=== PATIENT | female | born 1985 | race Caucasian/White ===

== ENCOUNTER 2018-07-10 11:00 | Observation (INO) | payer OTHER ==
[~2018-07-10] VITALS: Ht 157.5 cm; Wt 63.5 kg
[~2018-07-10 11:00] MED LIST: SYN.075 PO
[2018-07-10] MEDS ORDERED: VITD1000 PO (12:56)
[2018-07-10] MEDS ORDERED: VITA1TAB44 PO (12:56)
[2018-07-10] MEDS ORDERED: LEVO0.124 PO (12:56)
[2018-07-10] MEDS ORDERED: PREN-546 PO (12:56)
[2018-07-10] MEDS ORDERED: FERR-252 PO (12:56)
== END 2018-07-10 14:15 | disposition home or self-care (01) ==
LOC: MLD 11:00
PROVIDERS: ADMIT Obstetrics & Gynecology; ATTEND Obstetrics & Gynecology
DX: O36.8130 Decreased fetal movements, third trimester, not applicable or unspecified (principal); Z3A.38 38 weeks gestation of pregnancy
CPT/HCPCS: 59025; 76805; 81000; G0378; Q0092

== ENCOUNTER 2018-07-13 17:47 | Inpatient (IN) | payer OTHER ==
[~2018-07-13] VITALS: Ht 157.5 cm; Wt 63.5 kg
[~2018-07-13 17:47] MED LIST changes: +FERR-252 PO; +LEVO0.124 PO; +PREN-546 PO; -SYN.075 PO; +VITA1TAB44 PO; +VITD1000 PO
[2018-07-13] MEDS ORDERED: OXYTOCIN 10 UNITS/ML VIAL IM SCH (18:50)
[2018-07-13] MEDS ORDERED: CARBOPROST 250 MCG/ML AMP IM PRN (18:50)
[2018-07-13] MEDS ORDERED: NALBUPHINE 10 MG/ML AMP IVP PRN (18:50)
[2018-07-13] MEDS ORDERED: METHYLERGONOVINE 0.2 MG/ML AMP IM PRN (18:50)
[2018-07-13 19:48] LABS: BASOPHILS % (AUTO) 0.2 % (0.0-2.0); EOSINOPHILS # (AUTO) 0.1 K/uL (0-0.4); EOSINOPHILS % (AUTO) 0.9 % (0.0-4.0); HEMATOCRIT 30.8 % (36-48); HEMOGLOBIN 10.9 g/dL (12.0-16.0); LYMPHOCYTES # (AUTO) 1.8 K/uL (2.5-16.5); LYMPHOCYTES % (AUTO) 20.5 % (20.5-51.1); MEAN CORPUSCULAR HEMOGLOBIN 36 pg (27-31); MEAN CORPUSCULAR HGB CONC 35 g/dL (33-37); MEAN CORPUSCULAR VOLUME 102.6 fL (80-94); MONOCYTES # (AUTO) 0.7 K/uL (0.8-1.0); MONOCYTES % (AUTO) 8.3 % (1.7-9.3); NEUTROPHILS # (AUTO) 6.2 K/uL (1.8-7.7); NEUTROPHILS % (AUTO) 70.1 % (42.2-75.2); PLATELET COUNT (AUTO) 143 K/uL (140-450); RED BLOOD CELL COUNT(AUTO) 3.01 MIL/uL (4.20-5.40); RED CELL DISTRIBUTION WIDTH 12.7 % (11.6-13.7); WHITE BLOOD COUNT (AUTO) 8.8 K/uL (4.8-10.8)
[2018-07-13 19:56] LABS: ANION GAP 10.3 (8-16); CARBON DIOXIDE 26.5 mmol/L (21-32); CREATININE 0.4 mg/dL (0.6-1.3); POTASSIUM 3.8 mmol/L (3.5-5.1)
[2018-07-13] MEDS ORDERED: MISOPROSTOL 25 MCG TAB VG PRN (20:00)
[2018-07-13 20:02] LABS: ALBUMIN 2.6 g/dL (3.4-5.0); TOTAL BILIRUBIN 0.3 mg/dL (0.0-1.0)
[2018-07-13] MEDS ORDERED: MISOPROSTOL 25 MCG TAB ONE (20:47)
[2018-07-13 21:05] VITALS: BP 101/59
[2018-07-13 21:31] LABS: APPEARANCE,URINE CLEAR (CLEAR); BILIRUBIN,URINE NEGATIVE (NEGATIVE); BLOOD, URINE NEGATIVE (NEGATIVE); COLOR,URINE YELLOW (YELLOW); LEUKOCYTE ESTERASE ,URINE NEGATIVE (NEGATIVE); NITRITE, URINE NEGATIVE (NEGATIVE); PH,URINE 6.5 (5.0-9.0); UGLUCOSE NEGATIVE (NEGATIVE)
[2018-07-14] MEDS ORDERED: OXYTOCIN 20 UNITS in LACTATED RINGERS 1,000 ML IV SCH ×2 (03:00→20:38)
[2018-07-14] MEDS ORDERED: OXYTOCIN 20 UNITS/LR PREMIX 1,000 ML IV ONE (04:04)
[2018-07-14] MEDS: LACTATED RINGERS 1,000 ML IV SCH ×2 (04:35→12:47)
--- NOTE | 2018-07-14 06:18 | NUR ---
PATIENT HAS BEEN SCREENED AND CATEGORIZED LOW NUTRITION RISK. PATIENT WILL BE SEEN WITHIN 7 DAYS OF ADMISSION. 07/19/18 KELLIE PRITCHARD MS, RDN
[2018-07-14] MEDS ORDERED: BUPIVACAINE 0.125%/NS PREMIX 250 ML ONE (08:42)
[2018-07-14] MEDS ORDERED: BUPIVACAINE 0.125%/NS PREMIX 250 ML EPI SCH (09:05)
[2018-07-14] MEDS ORDERED: OXYTOCIN 10 UNITS/ML VIAL ONE (19:40)
[2018-07-14] MEDS ORDERED: ACETAMINOPHEN 325 MG TAB PO PRN (20:40)
[2018-07-14] MEDS ORDERED: MEASLES, MUMPS, AND RUBELLA 1 VIAL SQVAC PRN (20:40)
[2018-07-14] MEDS ORDERED: IBUPROFEN 600 MG TAB PO PRN (20:40)
[2018-07-14] MEDS ORDERED: BISACODYL 5 MG TABEC PO PRN (20:40)
[2018-07-15 08:55] LABS: BASOPHILS % (AUTO) 0.1 % (0.0-2.0); EOSINOPHILS # (AUTO) 0.1 K/uL (0-0.4); EOSINOPHILS % (AUTO) 0.5 % (0.0-4.0); HEMATOCRIT 33.7 % (36-48); HEMOGLOBIN 11.6 g/dL (12.0-16.0); LYMPHOCYTES # (AUTO) 1.5 K/uL (2.5-16.5); LYMPHOCYTES % (AUTO) 13.1 % (20.5-51.1); MEAN CORPUSCULAR HEMOGLOBIN 36 pg (27-31); MEAN CORPUSCULAR HGB CONC 34 g/dL (33-37); MEAN CORPUSCULAR VOLUME 103.2 fL (80-94); MONOCYTES # (AUTO) 0.8 K/uL (0.8-1.0); NEUTROPHILS # (AUTO) 9.3 K/uL (1.8-7.7); NEUTROPHILS % (AUTO) 79.3 % (42.2-75.2); PLATELET COUNT (AUTO) 147 K/uL (140-450); RED BLOOD CELL COUNT(AUTO) 3.27 MIL/uL (4.20-5.40); RED CELL DISTRIBUTION WIDTH 12.9 % (11.6-13.7); WHITE BLOOD COUNT (AUTO) 11.8 K/uL (4.8-10.8)
== END 2018-07-16 16:20 | disposition home or self-care (01) | DRG 560 ==
LOC: MFCC 17:47 → MLD 20:02 → MFCC 07-15 01:33
PROVIDERS: ADMIT Obstetrics & Gynecology; ATTEND Obstetrics & Gynecology
PROC: 10E0XZZ Delivery of Products of Conception, External Approach (ICD-10-PCS; principal; 2018-07-14)
PROC: 10907ZC Drainage of Amniotic Fluid, Therapeutic from Products of Conception, Via Natural or Artificial Opening (ICD-10-PCS; 2018-07-14)
PROC: 00HU33Z Insertion of Infusion Device into Spinal Canal, Percutaneous Approach (ICD-10-PCS; 2018-07-14)
PROC: 3E0R3BZ Introduction of Anesthetic Agent into Spinal Canal, Percutaneous Approach (ICD-10-PCS; 2018-07-14)
PROC: 3E033VJ Introduction of Other Hormone into Peripheral Vein, Percutaneous Approach (ICD-10-PCS; 2018-07-14)
PROC: 3E033VJ Introduction of Other Hormone into Peripheral Vein, Percutaneous Approach (ICD-10-PCS; 2018-07-14)
DX: O69.1XX0 Labor and delivery complicated by cord around neck, with compression, not applicable or unspecified (principal); Z37.0 Single live birth; Z3A.39 39 weeks gestation of pregnancy
CPT/HCPCS: 36415; 51702; 59409; 80053; 81003; 85025; 86592; 86886; 86900; 86901; J2590; J3490; J7120

== ENCOUNTER 2021-05-16 16:26 | Emergency (ER) | payer OTHER ==
[~2021-05-16] VITALS: Ht 157.5 cm; Wt 53.5 kg
[2021-05-16 16:50] VITALS: BP 136/77
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
--- NOTE | 2021-05-16 17:17 | NUR ---
Everardo madera in [facility] - 05/16/21 at 1731 by [email or web address] AMBULATED TO BED 10
--- NOTE | 2021-05-16 17:27 | NUR ---
PT AMBULATED TO BED 10
--- NOTE | 2021-05-16 17:31 | NUR ---
MI VALENZUELA AT BEDSIDE EVALUATING PT
[2021-05-16] MEDS ORDERED: KETOROLAC 30 MG/ML VIAL IM ONE (17:50)
[2021-05-16] MEDS ORDERED: methocarbamoL 500 MG TAB PO SCH (17:50)
--- NOTE | 2021-05-16 18:17 | NUR ---
PT AMBULATED TO RESTROOM FOR URINE SAMPLE
[2021-05-16] MEDS ORDERED: CRUSHER, PILL MC ONE (18:27)
--- NOTE | 2021-05-16 19:09 | NUR ---
REPORT GIVEN TO KAYCEE SAM, TRANSFER OF CARE AT THIS TIME
[2021-05-16] MEDS ORDERED: ACET-8386 PO (19:25)
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
--- NOTE | 2021-05-16 19:43 | NUR ---
d/c with VSS. d/c education given. opportunity to ask questions given and answered. rx of norco given.
== END 2021-05-16 19:42 | disposition home or self-care (01) ==
LOC: MED 16:26
DX: S60.222A Contusion of left hand, initial encounter (principal); R10.2 Pelvic and perineal pain; E07.9 Disorder of thyroid, unspecified; V98.8XXA Other specified transport accidents, initial encounter; Y93.89 Activity, other specified; Y92.89 Other specified places as the place of occurrence of the external cause; Y99.8 Other external cause status
CPT/HCPCS: 73090; 73130; 74176; 81002; 81025; 96372; 99284; J1885